=== PATIENT | female | born 2000 | race Caucasian/White ===

== ENCOUNTER 2019-09-25 23:41 | Emergency (ER) | payer OTHER ==
[~2019-09-25] VITALS: Ht 152.4 cm; Wt 68.0 kg
[2019-09-26] MEDS ORDERED: VITAMIN E100 UNI1 PO (00:32)
[2019-09-26] MEDS ORDERED: BUPROPION PO (00:33)
[2019-09-26] MEDS ORDERED: FLUOXETINE HCL20 M1 PO (00:34)
[2019-09-26] MEDS ORDERED: MONTELUKAST SODI4 M1 PO (00:34)
[2019-09-26] MEDS ORDERED: FISH OIL 1,001000 M3 PO (00:35)
[2019-09-26] MEDS ORDERED: IRON325 M1 PO (00:35)
[2019-09-26] MEDS ORDERED: VITAMIN D PORT (00:36)
[2019-09-26] MEDS ORDERED: ZYRTEC10 M5 PO (00:36)
[2019-09-26] MEDS ORDERED: BENADRYL25 MG PO (00:37)
[2019-09-26 03:36] VITALS: BP 106/43
== END 2019-09-26 03:30 | disposition home or self-care (01) ==
LOC: ER 23:41
DX: T40.2X1A Poisoning by other opioids, accidental (unintentional), initial encounter (principal); F17.210 Nicotine dependence, cigarettes, uncomplicated; Z79.899 Other long term (current) drug therapy; Y92.89 Other specified places as the place of occurrence of the external cause